=== PATIENT | male | born 1960 | race Caucasian/White ===

== ENCOUNTER 2020-09-28 20:44 | Inpatient (IN) ==
[2020-09-28] MEDS ORDERED: Isovue-370 500 ML BOTTLE IVP ONE (21:48)
[2020-09-28 22:37] LABS: Basophils # 0.1 K/mcL (0.0-0.2); Basophils % 0.8 %; Eosinophils # 0.3 K/mcL (0.0-0.6); Eosinophils % 2.5 %; Hemoglobin 15.9 g/dL (12.9-16.9); Immature Granulocytes % 0.2 % (0-4); Lymphocytes # 3.5 K/mcL (0.6-4.6); Lymphocytes % 34.6 %; Mean Corpuscular HGB Conc 35.3 g/dL (31.6-35.5); Mean Corpuscular Hemoglobin 31.2 pg (28.0-33.3); Mean Corpuscular Volume 88.2 fL (83.0-100.0); Mean Platelet Volume 10.5 fL (9.4-12.4); Monocytes # 0.9 K/mcL (0.0-1.3); Monocytes % 8.5 %; Neutrophils # 5.4 K/mcL (1.6-8.9); Platelet Count 263 K/mcL (140-400); Red Cell Distribution Width 11.9 % (11.5-14.5); Segmented Neutrophils % 53.4 %; White Blood Count 10.1 K/mcL (4.3-11.1)
[2020-09-28 22:45] LABS: INR 1.2; Prothrombin Time 13.4 Seconds (9.4-12.1)
[2020-09-28 23:00] LABS: Alanine Aminotransferase 20 Units/L (7-52); Albumin 4.3 g/dL (3.5-5.7); Albumin/Globulin Ratio 1.3 (1.1-2.2); Alkaline Phosphatase 87 Units/L (34-104); Aspartate Amino Transferase 18 Units/L (13-39); BUN/Creatinine Ratio 13 (6-26); Bilirubin,Total 0.6 mg/dL (0.3-1.0); Blood Urea Nitrogen 17 mg/dL (8-23); Calcium 9.9 mg/dL (8.6-10.3); Carbon Dioxide 23 mEq/L (23-29); Chloride 99 mEq/L (98-107); Globulin 3.3 g/dL (2.4-3.5); Glucose 436 mg/dL (70-105); Lipase 409 Units/L (11-82); Osmolality,Calculated 296 (280-300); Potassium 4.4 mEq/L (3.5-5.1); Sodium 133 mEq/L (136-145); Total Protein 7.6 g/dL (6.4-8.9); eGFR For African Americans > 60 (> 60); eGFR For Non-African Americans 54 (> 60)
[2020-09-28] MEDS ORDERED: *HR* Heparin 5,000 UNIT/ML VIAL IVP ONE (23:21)
[2020-09-28] MEDS ORDERED: *HR* Heparin 5,000 UNIT/ML VIAL IVP PRN ×2 (23:21)
[2020-09-29] MEDS: Heparin 25,000UNIT/250ML 1/2NS 25,000 UNIT/250 ML IV.SOLN IVC SCH ×2 (00:28→16:18)
[2020-09-29] MEDS ORDERED: Acetaminophen 325 MG TABLET PO PRN (01:28)
[2020-09-29] MEDS ORDERED: Naloxone 0.4 MG/ML INJ IVP PRN (01:28)
[2020-09-29] MEDS ORDERED: Ondansetron 4 MG/2 ML VIAL IVP PRN (01:28)
[2020-09-29] MEDS: 0.9 % Sodium Chloride 1,000 ML IVC SCH ×3 (01:50→22:28)
[2020-09-29] MEDS ORDERED: D5% in Water 1,000 ML IVC PRN (03:04)
[2020-09-29] MEDS ORDERED: Dextrose Gel 15 GM/37.5 ML TUBE PO PRN ×2 (03:04)
[2020-09-29] MEDS ORDERED: *HR* Dextrose 50 % in Water (Vial) 50 ML VIAL IVP PRN (03:04)
[2020-09-29] MEDS: Insulin LISPRO 300 UNITS/3 ML VIAL SUBQ SCH ×4 (03:34→17:24)
[2020-09-29 07:57] LABS: Basophils # 0.1 K/mcL (0.0-0.2); Basophils % 0.9 %; Eosinophils # 0.2 K/mcL (0.0-0.6); Eosinophils % 2.7 %; Hematocrit 43.6 % (37.5-50.1); Hemoglobin 15.3 g/dL (12.9-16.9); Immature Granulocytes % 0.2 % (0-4); Lymphocytes # 3.1 K/mcL (0.6-4.6); Lymphocytes % 35.9 %; Mean Corpuscular HGB Conc 35.1 g/dL (31.6-35.5); Mean Corpuscular Volume 88.4 fL (83.0-100.0); Mean Platelet Volume 10.6 fL (9.4-12.4); Monocytes # 0.7 K/mcL (0.0-1.3); Monocytes % 7.6 %; Neutrophils # 4.6 K/mcL (1.6-8.9); Platelet Count 236 K/mcL (140-400); Red Blood Count 4.93 M/mcL (4.19-5.50); Red Cell Distribution Width 12.1 % (11.5-14.5); Segmented Neutrophils % 52.7 %; White Blood Count 8.7 K/mcL (4.3-11.1)
[2020-09-29 08:11] LABS: BUN/Creatinine Ratio 16 (6-26); Blood Urea Nitrogen 15 mg/dL (8-23); Calcium 9.1 mg/dL (8.6-10.3); Carbon Dioxide 22 mEq/L (23-29); Chloride 107 mEq/L (98-107); Chol/HDL Ratio 3.3 (0-4.9); Cholesterol 89 mg/dL (< 200); Glucose 214 mg/dL (70-105); HDL Cholesterol 27 mg/dL (40-59); LDL Cholesterol,Calculated 37 mg/dL (< 100); Magnesium 2.2 mg/dL (1.6-2.6); Osmolality,Calculated 295 (280-300); Sodium 139 mEq/L (136-145); Triglycerides 125 mg/dL (< 150); eGFR For African Americans > 60 (> 60); eGFR For Non-African Americans > 60 (> 60)
[2020-09-29 08:19] LABS: Thyroid Stimulating Hormone 1.472 mcIU/mL (0.340-5.600)
[2020-09-29 10:28] LABS: Estimated Average Glucose 278 mg/dl; Hemoglobin A1C 11.3 %
[2020-09-30 04:48] LABS: Hematocrit 40.9 % (37.5-50.1); Hemoglobin 14.2 g/dL (12.9-16.9); Mean Corpuscular HGB Conc 34.7 g/dL (31.6-35.5); Mean Corpuscular Volume 89.3 fL (83.0-100.0); Mean Platelet Volume 10.7 fL (9.4-12.4); Platelet Count 200 K/mcL (140-400); Red Blood Count 4.58 M/mcL (4.19-5.50); White Blood Count 8.7 K/mcL (4.3-11.1)
[2020-09-30 05:06] LABS: BUN/Creatinine Ratio 17 (6-26); Blood Urea Nitrogen 13 mg/dL (8-23); Calcium 8.8 mg/dL (8.6-10.3); Carbon Dioxide 22 mEq/L (23-29); Chloride 108 mEq/L (98-107); Glucose 320 mg/dL (70-105); Osmolality,Calculated 298 (280-300); Potassium 4.1 mEq/L (3.5-5.1); Sodium 138 mEq/L (136-145); eGFR For African Americans > 60 (> 60); eGFR For Non-African Americans > 60 (> 60)
[2020-09-30] MEDS: 0.9 % Sodium Chloride 1,000 ML IVC SCH ×4 (06:54→23:48)
[2020-09-30] MEDS: Insulin LISPRO 300 UNITS/3 ML VIAL SUBQ SCH ×3 (08:00→16:20)
[2020-09-30] MEDS: Heparin 25,000UNIT/250ML 1/2NS 25,000 UNIT/250 ML IV.SOLN IVC SCH (10:44)
[2020-10-01 05:02] LABS: Basophils # 0.1 K/mcL (0.0-0.2); Basophils % 0.8 %; Eosinophils # 0.2 K/mcL (0.0-0.6); Eosinophils % 2.8 %; Hemoglobin 13.6 g/dL (12.9-16.9); Immature Granulocytes % 0.3 % (0-4); Mean Corpuscular HGB Conc 34.9 g/dL (31.6-35.5); Mean Corpuscular Hemoglobin 31.1 pg (28.0-33.3); Mean Platelet Volume 10.8 fL (9.4-12.4); Monocytes # 0.7 K/mcL (0.0-1.3); Monocytes % 8.2 %; Neutrophils # 4.6 K/mcL (1.6-8.9); Platelet Count 185 K/mcL (140-400); Red Blood Count 4.38 M/mcL (4.19-5.50); Red Cell Distribution Width 11.9 % (11.5-14.5); Segmented Neutrophils % 52.9 %; White Blood Count 8.6 K/mcL (4.3-11.1)
[2020-10-01 05:17] LABS: BUN/Creatinine Ratio 16 (6-26); Blood Urea Nitrogen 13 mg/dL (8-23); Calcium 8.5 mg/dL (8.6-10.3); Carbon Dioxide 21 mEq/L (23-29); Chloride 106 mEq/L (98-107); Glucose 368 mg/dL (70-105); Osmolality,Calculated 297 (280-300); Potassium 4.2 mEq/L (3.5-5.1); Sodium 136 mEq/L (136-145); eGFR For African Americans > 60 (> 60); eGFR For Non-African Americans > 60 (> 60)
[2020-10-01] MEDS: Heparin 25,000UNIT/250ML 1/2NS 25,000 UNIT/250 ML IV.SOLN IVC SCH ×2 (05:32→23:56)
[2020-10-01] MEDS: Insulin LISPRO 300 UNITS/3 ML VIAL SUBQ SCH ×3 (08:06→16:38)
[2020-10-01] MEDS: 0.9 % Sodium Chloride 1,000 ML IVC SCH (08:06)
[2020-10-01] MEDS: Erythromycin OPTH Oint BOTH EYES SCH ×3 (12:16→22:30)
[2020-10-02 05:50] LABS: Hematocrit 40.9 % (37.5-50.1); Hemoglobin 14.3 g/dL (12.9-16.9); Mean Corpuscular Volume 88.7 fL (83.0-100.0); Mean Platelet Volume 10.7 fL (9.4-12.4); Platelet Count 218 K/mcL (140-400); Red Blood Count 4.61 M/mcL (4.19-5.50); Red Cell Distribution Width 11.9 % (11.5-14.5); White Blood Count 9.9 K/mcL (4.3-11.1)
[2020-10-02 06:09] LABS: BUN/Creatinine Ratio 15 (6-26); Blood Urea Nitrogen 12 mg/dL (8-23); Calcium 8.9 mg/dL (8.6-10.3); Carbon Dioxide 23 mEq/L (23-29); Chloride 104 mEq/L (98-107); Glucose 297 mg/dL (70-105); Osmolality,Calculated 293 (280-300); Potassium 3.8 mEq/L (3.5-5.1); Sodium 136 mEq/L (136-145); eGFR For African Americans > 60 (> 60); eGFR For Non-African Americans > 60 (> 60)
[2020-10-02] MEDS: Insulin LISPRO 300 UNITS/3 ML VIAL SUBQ SCH ×3 (08:07→17:02)
[2020-10-02] MEDS: Erythromycin OPTH Oint BOTH EYES SCH ×2 (08:08→15:40)
[2020-10-02] MEDS ORDERED: Albuterol 2.5 MG/3 ML NEBULIZER IH PRN (10:00)
[2020-10-02] MEDS ORDERED: Naloxone 0.4 MG/ML INJ IVP PRN (10:00)
[2020-10-02] MEDS ORDERED: Nitroglycerin 0.4 MG TAB.SUBL SL PRN (10:00)
[2020-10-02] MEDS ORDERED: *HR* FentaNYL (PF) 100 MCG/2 ML VIAL IVP PRN (10:00)
[2020-10-02] MEDS ORDERED: Ondansetron 4 MG/2 ML VIAL IVP PRN (10:00)
[2020-10-02] MEDS ORDERED: Lidocaine -MPF 2% 5 ML VIAL ONE (12:37)
[2020-10-02] MEDS ORDERED: Ondansetron 4 MG/2 ML VIAL ONE (12:37)
[2020-10-02] MEDS ORDERED: *HR* Rocuronium Bromide 50 MG/5 ML VIAL ONE (12:37)
[2020-10-02] MEDS ORDERED: Lidocaine -MPF 4% 5 ML AMPUL ONE (12:37)
[2020-10-02] MEDS ORDERED: *HR* Succinylcholine 200 MG/10 ML VIAL IVP ONE (12:37)
[2020-10-02] MEDS ORDERED: *HR* Propofol 200 MG/20 ML VIAL IVP ONE (12:37)
[2020-10-02] MEDS ORDERED: *HR* FentaNYL (PF) 100 MCG/2 ML VIAL ONE (12:38)
[2020-10-02] MEDS ORDERED: *HR* Heparin 5,000 UNIT/ML VIAL IVP PRN ×2 (14:57)
[2020-10-02] MEDS ORDERED: Heparin 25,000UNIT/250ML 1/2NS 25,000 UNIT/250 ML IV.SOLN IVC SCH (15:00)
[2020-10-02 16:00] VITALS: BP 127/77; PULSE 66; TEMP 99; O2SAT 94
[2020-10-02] MEDS ORDERED: Insulin LISPRO 300 UNITS/3 ML VIAL SUBQ SCH (21:00)
== END 2020-10-02 18:28 | disposition home or self-care (01) | DRG 435 ==
LOC: CDU 20:44 → EMEROOARM 20:44 → SUATTDRO 09-29 01:29 → CDU 09-29 02:23 → 2ANU 09-30 19:09
PROVIDERS: ADMIT Internal Medicine; ATTEND Internal Medicine
PROC: ENDOEUS (2020-10-02 13:50)

== ENCOUNTER 2020-11-10 13:28 | Inpatient (IN) ==
[2020-11-10] MEDS ORDERED: 0.9 % Sodium Chloride 1,000 ML IVC ONE (14:00)
[2020-11-10] MEDS ORDERED: Ondansetron 4 MG/2 ML VIAL IVP ONE (14:00)
[2020-11-10 14:29] LABS: Hematocrit 40.8 % (37.5-50.1); Mean Corpuscular HGB Conc 34.3 g/dL (31.6-35.5); Mean Corpuscular Hemoglobin 30.6 pg (28.0-33.3); Mean Corpuscular Volume 89.1 fL (83.0-100.0); Mean Platelet Volume 10.8 fL (9.4-12.4); Nucleated Red Blood Cells 0.1 /100 WBC (0); Platelet Count 189 K/mcL (140-400); Red Blood Count 4.58 M/mcL (4.19-5.50); Red Cell Distribution Width 12.9 % (11.5-14.5); White Blood Count 24.3 K/mcL (4.3-11.1)
[2020-11-10 15:08] LABS: BUN/Creatinine Ratio 12 (6-26); Blood Urea Nitrogen 8 mg/dL (8-23); Carbon Dioxide 19 mEq/L (23-29); Chloride 97 mEq/L (98-107); Glucose 177 mg/dL (70-105); Osmolality,Calculated 283 (280-300); Potassium 3.2 mEq/L (3.5-5.1); Sodium 135 mEq/L (136-145); eGFR For African Americans > 60 (> 60); eGFR For Non-African Americans > 60 (> 60)
[2020-11-10 15:26] LABS: Lymphocytes # 2.4 K/mcL (0.6-4.6); Monocytes # 1.5 K/mcL (0.0-1.3); Neutrophils # 20.4 K/mcL (1.6-8.9); Platelet Estimate Normal (Normal)
[2020-11-10 15:35] LABS: Influenza A PCR Negative (Negative); Influenza B PCR Negative (Negative); Resp. Syncytial Virus PCR Negative (Negative)
[2020-11-10 15:37] LABS: SARS-CoV-2 by PCR (In House) Positive (Negative)
[2020-11-10 16:28] LABS: Bilirubin,Urine Negative (Negative); Blood,Urine Negative (Negative); Clarity,Urine Clear (Clear); Color,Urine Light-Yellow (Yellow); Glucose,Urine (UA) >=1000 mg/dL (Normal); Ketones,Urine >150 mg/dL (Negative); Leukocyte Esterase,Urine Negative (Negative); Nitrite,Urine Negative (Negative); Protein,Urine Trace mg/dL (Neg-Trace); RBC,Urine 0-3 per hpf (0-3); Specific Gravity,Urine > 1.030 (1.010-1.025); Squamous Epithelial Cell,Urine Few per hpf (None-Few); Urobilinogen,Urine Normal (Normal); WBC,Urine 0-3 per hpf (0-3)
[2020-11-10] MEDS ORDERED: Acetaminophen 325 MG TABLET PO PRN (16:45)
[2020-11-10] MEDS ORDERED: Ondansetron 4 MG/2 ML VIAL IVP PRN (16:45)
[2020-11-10] MEDS ORDERED: Naloxone 0.4 MG/ML INJ IVP PRN (16:45)
[2020-11-10] MEDS ORDERED: *HR* Dextrose 50 % in Water (Syg) 50 ML SYRINGE IVP PRN (16:51)
[2020-11-10] MEDS ORDERED: D5% in Water 1,000 ML IVC PRN (16:51)
[2020-11-10] MEDS ORDERED: Dextrose Gel 15 GM/37.5 ML TUBE PO PRN ×2 (16:51)
[2020-11-10 18:21] LABS: Albumin/Globulin Ratio 1.2 (1.1-2.2); Bilirubin,Direct 0.2 mg/dL (0.0-0.2); Bilirubin,Indirect 0.3 mg/dL (0.0-1.0); Bilirubin,Total 0.5 mg/dL (0.3-1.0); Globulin 2.6 g/dL (2.4-3.5); Total Protein 5.6 g/dL (6.4-8.9)
[2020-11-10] MEDS ORDERED: Remdesivir 200 MG in 0.9 % Sodium Chloride 100 ML IVPB ONE (20:00)
[2020-11-10] MEDS: Insulin LISPRO 300 UNITS/3 ML VIAL SUBQ SCH ×2 (21:17→23:11)
[2020-11-10] MEDS: Ipratropium 1 PUFF INHALER IH SCH (23:37)
[2020-11-11 03:07] LABS: BUN/Creatinine Ratio 11 (6-26); Blood Urea Nitrogen 6 mg/dL (8-23); C-Reactive Protein 59 mg/L (Less than 10); Calcium 7.7 mg/dL (8.6-10.3); Carbon Dioxide 22 mEq/L (23-29); Chloride 102 mEq/L (98-107); Glucose 114 mg/dL (70-105); Magnesium 1.8 mg/dL (1.6-2.6); Osmolality,Calculated 282 (280-300); Phosphorous 2.6 mg/dL (2.7-4.5); Potassium 3.5 mEq/L (3.5-5.1); Sodium 137 mEq/L (136-145); eGFR For African Americans > 60 (> 60); eGFR For Non-African Americans > 60 (> 60)
[2020-11-11 03:08] LABS: Albumin/Globulin Ratio 1.2 (1.1-2.2); Bilirubin,Direct 0.2 mg/dL (0.0-0.2); Bilirubin,Indirect 0.3 mg/dL (0.0-1.0); Bilirubin,Total 0.5 mg/dL (0.3-1.0); Globulin 2.6 g/dL (2.4-3.5); Total Protein 5.6 g/dL (6.4-8.9)
[2020-11-11 03:21] LABS: Nucleated Red Blood Cells 0.1 /100 WBC (0)
[2020-11-11 03:22] LABS: Hemoglobin 12.5 g/dL (12.9-16.9); Mean Corpuscular HGB Conc 34.7 g/dL (31.6-35.5); Mean Corpuscular Hemoglobin 31.3 pg (28.0-33.3); Mean Corpuscular Volume 90.2 fL (83.0-100.0); Platelet Count 193 K/mcL (140-400); Red Blood Count 3.99 M/mcL (4.19-5.50); White Blood Count 28.3 K/mcL (4.3-11.1)
[2020-11-11] MEDS: Ipratropium 1 PUFF INHALER IH SCH ×4 (05:23→20:25)
[2020-11-11 05:47] LABS: Platelet Estimate Normal (Normal)
[2020-11-11] MEDS: Insulin LISPRO 300 UNITS/3 ML VIAL SUBQ SCH ×4 (09:10→19:50)
[2020-11-11] MEDS: *HR* Rivaroxaban 15 MG TABLET PO SCH (09:12)
[2020-11-11] MEDS: Loratadine 10 MG TABLET PO SCH (09:12)
[2020-11-11 09:26] LABS: Neutrophils # 20.4 K/mcL (1.6-8.9)
[2020-11-11 10:11] LABS: Estimated Average Glucose 243 mg/dl; Hemoglobin A1C 10.1 %
[2020-11-11] MEDS: Remdesivir 100 MG in 0.9 % Sodium Chloride 100 ML IVPB SCH (19:47)
[2020-11-12] MEDS: Ipratropium 1 PUFF INHALER IH SCH ×4 (03:28→22:17)
[2020-11-12 04:05] LABS: Platelet Count 254 K/mcL (140-400); Red Cell Distribution Width 13.1 % (11.5-14.5)
[2020-11-12 04:10] LABS: BUN/Creatinine Ratio 17 (6-26); Blood Urea Nitrogen 9 mg/dL (8-23); Calcium 8.2 mg/dL (8.6-10.3); Carbon Dioxide 21 mEq/L (23-29); Chloride 103 mEq/L (98-107); Glucose 220 mg/dL (70-105); Osmolality,Calculated 289 (280-300); Potassium 3.9 mEq/L (3.5-5.1); Sodium 137 mEq/L (136-145); eGFR For African Americans > 60 (> 60); eGFR For Non-African Americans > 60 (> 60)
[2020-11-12 04:12] LABS: Albumin 3.2 g/dL (3.5-5.7); Albumin/Globulin Ratio 1.1 (1.1-2.2); Bilirubin,Direct 0.2 mg/dL (0.0-0.2); Bilirubin,Indirect 0.3 mg/dL (0.0-1.0); Bilirubin,Total 0.5 mg/dL (0.3-1.0); Globulin 2.8 g/dL (2.4-3.5)
[2020-11-12 04:14] LABS: Hematocrit 36.5 % (37.5-50.1); Hemoglobin 12.8 g/dL (12.9-16.9); Mean Corpuscular HGB Conc 35.1 g/dL (31.6-35.5); Mean Corpuscular Hemoglobin 31.3 pg (28.0-33.3); Mean Corpuscular Volume 89.2 fL (83.0-100.0); Mean Platelet Volume 10.6 fL (9.4-12.4); Nucleated Red Blood Cells 0.1 /100 WBC (0); Red Blood Count 4.09 M/mcL (4.19-5.50)
[2020-11-12 04:21] LABS: White Blood Count 30.8 K/mcL (4.3-11.1)
[2020-11-12 05:25] LABS: Lymphocytes # 3.7 K/mcL (0.6-4.6); Monocytes # 1.5 K/mcL (0.0-1.3)
[2020-11-12 05:26] LABS: Platelet Estimate Normal (Normal); Reactive Lymphocytes Present (Not Present); Toxic Granulation Present (Not Present)
[2020-11-12] MEDS: *HR* Rivaroxaban 15 MG TABLET PO SCH (07:40)
[2020-11-12] MEDS: Cholecalciferol (D-3) 1,000 UNIT (25MCG) TABLET PO SCH (07:40)
[2020-11-12] MEDS: Loratadine 10 MG TABLET PO SCH (07:40)
[2020-11-12] MEDS: Insulin LISPRO 300 UNITS/3 ML VIAL SUBQ SCH ×4 (07:43→21:09)
[2020-11-12] MEDS: Remdesivir 100 MG in 0.9 % Sodium Chloride 100 ML IVPB SCH (21:09)
[2020-11-13] MEDS: Ipratropium 1 PUFF INHALER IH SCH ×4 (04:55→21:07)
[2020-11-13 05:23] LABS: Nucleated Red Blood Cells 0.1 /100 WBC (0)
[2020-11-13 05:25] LABS: Hematocrit 35.4 % (37.5-50.1); Hemoglobin 12.4 g/dL (12.9-16.9); Mean Corpuscular Hemoglobin 31.4 pg (28.0-33.3); Mean Corpuscular Volume 89.6 fL (83.0-100.0); Mean Platelet Volume 10.4 fL (9.4-12.4); Platelet Count 295 K/mcL (140-400); Red Blood Count 3.95 M/mcL (4.19-5.50); Red Cell Distribution Width 12.9 % (11.5-14.5)
[2020-11-13 05:29] LABS: White Blood Count 35.8 K/mcL (4.3-11.1)
[2020-11-13 05:45] LABS: BUN/Creatinine Ratio 23 (6-26); Blood Urea Nitrogen 14 mg/dL (8-23); Calcium 8.5 mg/dL (8.6-10.3); Carbon Dioxide 24 mEq/L (23-29); Chloride 103 mEq/L (98-107); Glucose 272 mg/dL (70-105); Magnesium 1.9 mg/dL (1.6-2.6); Osmolality,Calculated 294 (280-300); Potassium 3.9 mEq/L (3.5-5.1); Sodium 137 mEq/L (136-145); eGFR For African Americans > 60 (> 60); eGFR For Non-African Americans > 60 (> 60)
[2020-11-13 05:47] LABS: Albumin 3.2 g/dL (3.5-5.7); Albumin/Globulin Ratio 1.2 (1.1-2.2); Bilirubin,Direct 0.2 mg/dL (0.0-0.2); Bilirubin,Indirect 0.3 mg/dL (0.0-1.0); Bilirubin,Total 0.5 mg/dL (0.3-1.0); Globulin 2.6 g/dL (2.4-3.5); Total Protein 5.8 g/dL (6.4-8.9)
[2020-11-13 05:48] LABS: Anisocytosis 1+ (Not Present); Lymphocytes # 1.4 K/mcL (0.6-4.6); Monocytes # 2.9 K/mcL (0.0-1.3); Neutrophils # 30.8 K/mcL (1.6-8.9); Platelet Estimate Normal (Normal); Polychromasia 1+ (Not Present)
[2020-11-13] MEDS: Cholecalciferol (D-3) 1,000 UNIT (25MCG) TABLET PO SCH (08:13)
[2020-11-13] MEDS: Insulin LISPRO 300 UNITS/3 ML VIAL SUBQ SCH ×4 (08:13→21:51)
[2020-11-13] MEDS: Loratadine 10 MG TABLET PO SCH (08:13)
[2020-11-13] MEDS: *HR* Rivaroxaban 15 MG TABLET PO SCH (08:13)
[2020-11-13] MEDS: levoFLOXacin 750 MG/150 ML 750 MG/150 ML BAG IVPB SCH (10:01)
[2020-11-13] MEDS ORDERED: Insulin DETEMIR 100 UNIT/ML X5UNITS SUBQ ONE (12:59)
[2020-11-13] MEDS: Remdesivir 100 MG in 0.9 % Sodium Chloride 100 ML IVPB SCH (21:42)
[2020-11-13] MEDS: Insulin DETEMIR 100 UNIT/ML X5UNITS SUBQ SCH (21:48)
[2020-11-14] MEDS: Ipratropium 1 PUFF INHALER IH SCH ×4 (04:12→22:20)
[2020-11-14 05:49] LABS: Alanine Aminotransferase 20 Units/L (7-52); Albumin 3.3 g/dL (3.5-5.7); Albumin/Globulin Ratio 1.2 (1.1-2.2); Alkaline Phosphatase 140 Units/L (34-104); Aspartate Amino Transferase 16 Units/L (13-39); BUN/Creatinine Ratio 21 (6-26); Bilirubin,Direct 0.2 mg/dL (0.0-0.2); Bilirubin,Indirect 0.3 mg/dL (0.0-1.0); Bilirubin,Total 0.5 mg/dL (0.3-1.0); Blood Urea Nitrogen 16 mg/dL (8-23); Calcium 8.5 mg/dL (8.6-10.3); Carbon Dioxide 25 mEq/L (23-29); Chloride 102 mEq/L (98-107); Globulin 2.8 g/dL (2.4-3.5); Glucose 269 mg/dL (70-105); Magnesium 1.9 mg/dL (1.6-2.6); Osmolality,Calculated 295 (280-300); Potassium 3.5 mEq/L (3.5-5.1); Sodium 137 mEq/L (136-145); Total Protein 6.1 g/dL (6.4-8.9); eGFR For African Americans > 60 (> 60); eGFR For Non-African Americans > 60 (> 60)
[2020-11-14 05:54] LABS: Hematocrit 36.4 % (37.5-50.1); Hemoglobin 12.9 g/dL (12.9-16.9); Mean Corpuscular HGB Conc 35.4 g/dL (31.6-35.5); Mean Corpuscular Hemoglobin 31.8 pg (28.0-33.3); Mean Corpuscular Volume 89.7 fL (83.0-100.0); Mean Platelet Volume 10.6 fL (9.4-12.4); Nucleated Red Blood Cells 0.3 /100 WBC (0); Platelet Count 373 K/mcL (140-400); Red Blood Count 4.06 M/mcL (4.19-5.50)
[2020-11-14 07:07] LABS: White Blood Count 44.1 K/mcL (4.3-11.1)
[2020-11-14 07:09] LABS: Lymphocytes # 4.4 K/mcL (0.6-4.6); Monocytes # 1.8 K/mcL (0.0-1.3); Neutrophils # 36.2 K/mcL (1.6-8.9)
[2020-11-14 07:10] LABS: Platelet Estimate Normal (Normal); Polychromasia 1+ (Not Present); Toxic Granulation Present (Not Present)
[2020-11-14] MEDS: Cholecalciferol (D-3) 1,000 UNIT (25MCG) TABLET PO SCH (09:25)
[2020-11-14] MEDS: levoFLOXacin 750 MG/150 ML 750 MG/150 ML BAG IVPB SCH (09:26)
[2020-11-14] MEDS: Loratadine 10 MG TABLET PO SCH (09:26)
[2020-11-14] MEDS: Insulin LISPRO 300 UNITS/3 ML VIAL SUBQ SCH ×4 (13:32→21:13)
[2020-11-14] MEDS ORDERED: *HR* Rivaroxaban 10 MG TABLET PO SCH (17:00)
[2020-11-14] MEDS: Remdesivir 100 MG in 0.9 % Sodium Chloride 100 ML IVPB SCH (21:11)
[2020-11-14] MEDS: Insulin DETEMIR 100 UNIT/ML X5UNITS SUBQ SCH (21:13)
[2020-11-15] MEDS: Ipratropium 1 PUFF INHALER IH SCH ×2 (04:27→07:48)
[2020-11-15 04:56] LABS: Hemoglobin 12.5 g/dL (12.9-16.9); Mean Corpuscular Volume 89.9 fL (83.0-100.0); Nucleated Red Blood Cells 0.4 /100 WBC (0)
[2020-11-15 04:57] LABS: Hematocrit 36.6 % (37.5-50.1); Mean Corpuscular HGB Conc 34.2 g/dL (31.6-35.5); Mean Corpuscular Hemoglobin 30.7 pg (28.0-33.3); Mean Platelet Volume 10.4 fL (9.4-12.4); Platelet Count 371 K/mcL (140-400); Red Blood Count 4.07 M/mcL (4.19-5.50); Red Cell Distribution Width 12.9 % (11.5-14.5)
[2020-11-15 05:09] LABS: White Blood Count 34.4 K/mcL (4.3-11.1)
[2020-11-15 05:16] LABS: Alanine Aminotransferase 18 Units/L (7-52); Albumin 3.1 g/dL (3.5-5.7); Albumin/Globulin Ratio 1.1 (1.1-2.2); Alkaline Phosphatase 135 Units/L (34-104); Aspartate Amino Transferase 15 Units/L (13-39); BUN/Creatinine Ratio 25 (6-26); Bilirubin,Direct 0.2 mg/dL (0.0-0.2); Bilirubin,Indirect 0.4 mg/dL (0.0-1.0); Bilirubin,Total 0.6 mg/dL (0.3-1.0); Blood Urea Nitrogen 15 mg/dL (8-23); Calcium 8.2 mg/dL (8.6-10.3); Carbon Dioxide 26 mEq/L (23-29); Chloride 103 mEq/L (98-107); Globulin 2.7 g/dL (2.4-3.5); Glucose 272 mg/dL (70-105); Magnesium 1.9 mg/dL (1.6-2.6); Osmolality,Calculated 296 (280-300); Potassium 3.2 mEq/L (3.5-5.1); Sodium 138 mEq/L (136-145); Total Protein 5.8 g/dL (6.4-8.9); eGFR For African Americans > 60 (> 60); eGFR For Non-African Americans > 60 (> 60)
[2020-11-15 05:54] LABS: Lymphocytes # 2.8 K/mcL (0.6-4.6); Monocytes # 3.4 K/mcL (0.0-1.3); Neutrophils # 26.8 K/mcL (1.6-8.9)
[2020-11-15 05:55] LABS: Anisocytosis 1+ (Not Present); Platelet Estimate Normal (Normal); Polychromasia 1+ (Not Present)
[2020-11-15 06:48] VITALS: BP 111/45; PULSE 77; TEMP 97.7; O2SAT 93
[2020-11-15] MEDS: Cholecalciferol (D-3) 1,000 UNIT (25MCG) TABLET PO SCH (08:58)
[2020-11-15] MEDS: Loratadine 10 MG TABLET PO SCH (08:58)
[2020-11-15] MEDS: levoFLOXacin 750 MG/150 ML 750 MG/150 ML BAG IVPB SCH (08:59)
[2020-11-15] MEDS: Insulin LISPRO 300 UNITS/3 ML VIAL SUBQ SCH (09:02)
== END 2020-11-15 10:51 | disposition home or self-care (01) | DRG 871 ==
LOC: EMEROOARM 13:28 → 2ANU 13:28 → SUATTDRO 17:40 → 2ANU 18:39 → SUATTDRO 11-12 16:29
PROVIDERS: ADMIT Pharmacist; ATTEND Internal Medicine